=== PATIENT | male | born 1950 | race Two or more races ===

== ENCOUNTER 2022-05-02 07:18 | Outpatient (CLI) | payer OTHER | END 2022-05-02 07:21 | disposition home or self-care (01) | LOC: NUCLEAR 07:18 | PROVIDERS: ATTEND Internal Medicine Hematology & Oncology | DX: C61 Malignant neoplasm of prostate (principal); C78.6 Secondary malignant neoplasm of retroperitoneum and peritoneum; D51.3 Other dietary vitamin B12 deficiency anemia | CPT/HCPCS: 78815; A9552 ==